=== PATIENT | female | born 1965 | race American Indian/Alaskan Native ===

== ENCOUNTER 2016-12-31 14:30 | Emergency (ER) | payer MEDICARE, MEDICAID ==
[2016-12-31 14:52] VITALS: BP 115/79
--- NOTE | 2016-12-31 15:22 | ED Physician Chart ---
Chief Complaint/HPI - Patient Information Date Seen:: 12/31/16 Time Seen:: 15:00 Chief Complaint:: COUGH History of Present Illness:: THIS IS A 51 YO FEMALE WITH TWO DAYS OF CHEST CONGESTION AND COUGH. THE COUGH IS PRODUCING GREEN SPUTUM WHICH INCREASES AT NIGHT. 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 SHE DENIES HAVING PNEUMONIA IN THE PAST. SHE IS NOT SURE WHETHER SHE HAS HAD FEVER OR NOT. SHE DENIES DIABETES AND HYPERTENSION. Allergies:: Allergies Allergy/AdvReac Type Severity Reaction Status Date / Time No Known Allergies Allergy Verified 12/31/16 14:43 Vitals:: Vital Signs - 8 hr 12/31/16 12/31/16 14:51 14:55 Temp 98.1 F HR 87 RR 14 BP 115/79 115/78 O2 Sat % 98 Historian:: Patient, Family Member (SISTER) Review:: Nurse's Note Reviewed Review of Systems - Review of Systems General/Constitutional: Fever, No chills, No weight loss, No weakness, No diaphoresis, No edema, No loss of appetite Skin: No skin lesions, No rash, No bruising Head: No headache, No light-headedness Eyes: No loss of vision, No pain, No diplopia ENT: No earache, No nasal drainage, No sore throat, No tinnitus Neck: No neck pain, No swelling, No thyromegaly, No stiffness, No mass noted Cardio Vascular: No chest pain, No palpitations, No PND, No orthopnea, No edema Pulmonary: SOB, No SOB, Cough, Sputum ( GREEN IN COLOR), No wheezing GI: No nausea, No vomiting, No diarrhea, No pain, No melena, No hematochezia, No constipation, No hematemesis G/U: No dysuria, No frequency, No hematuria Musculoskeletal: No bone or joint pain, No back pain, No muscle pain Endocrine: No polyuria, No polydipsia Psychiatric: No prior psych history, No depression, No anxiety, No suicidal ideation Hematopoietic: No bruising, No lymphadenopathy Allergic/Immuno: No urticaria, No angioedema Neurological: No syncope, No focal symptoms, No weakness, No paresthesia, No headache, No seizure, No dizziness, No confusion, No vertigo Past Medical History - Past Medical History Obtainable: Yes Past Medical History: Asthma/COPD Family History: None Social History: Non Smoker, No Alcohol, No Drug Use Surgical History: None Psychiatricy History: None Family Medical History - Family Member Sister History Unknown: Yes Hx Family Cancer: No Hx Family Hypertension: No Hx Family Stroke: No Hx Family Seizures: No Hx Family HIV: No Hx Family Hepatitis: No Physical Exam - Physical Examination General/Constitutional: Awake, Well-developed, well-nourished, Alert, No distress, GCS 15, Non-toxic appearing, Ambulatory Head: Atraumatic Eyes: Lids, conjuctiva normal, PERRL, EOMI Skin: Nl inspection, No rash, No skin lesions, No ecchymosis, Well hydrated, No lymphadenopathy ENMT: External ears, nose nl, Nasal exam nl, Lips, teeth, gums nl Neck: Nontender, Full ROM w/o pain, No JVD, No nuchal rigidity, No bruit, No mass, No stridor Respiratory: Nl effort/Exclusion, Clear to Auscultation Other Respiratory comments:: THERE ARE RHONCHI HEARD BILATERALLY Cardio Vascular: RRR, No murmur, gallop, rubs, NL S1 S2 GI: No tenderness/rebounding/guarding, No organomegaly, No hernia, Normal BS's, Nondistended, No mass/bruits, No McBurney tenderness : No CVA tenderness Extremities: No tenderness or effusion, Full ROM, normal strength in all extremities, No edema, Normal digits & nails Neuro/Psych: Alert/oriented, DTR's symmetric, Normal sensory exam, Normal motor strength, Judgement/insight normal, Mood normal, Normal gait, No focal deficits Misc: normal gait, Normal back, No paraspinal tenderness ED Septic Shock - . Is Septic Shock (SBP<90, OR Lactate>4 mmol\L) present?: No - <6hrs of presentation: Vital Signs: Vital Signs - 8 hr 12/31/16 12/31/16 14:51 14:55 Temp 98.1 F HR 87 RR 14 BP 115/79 115/78 O2 Sat % 98 Reassessment (Disposition) - Reassessment Reassessment Condition:: Unchanged - Diagnosis Diagnosis:: BRONCHITIS - Aftercare/Follow up Instructions Aftercare/Follow-Up Instructions:: Counseled pt regarding lab results/diagnosis & need follow up, Refer to Discharge Instructions, Counseled pt & family regarding lab results/diagnosis & need follow up - Patient Disposition Discharge/Transfer:: Home Condition at Disposition:: Unchanged ED Discharge Plan - Patient Disposition Admit/Discharge/Transfer: PT DISCHARGED HOME Condition at Disposition: Unchanged
--- NOTE | 2016-12-31 15:37 | ED Physician Chart ---
Chief Complaint/HPI - Patient Information Date Seen:: 12/31/16 Time Seen:: 15:00 Chief Complaint:: COUGH History of Present Illness:: THIS IS A 51 YEAR OLD FEMALE WITH TWO DAYS OF COUGHING AND FEVER WITH SPUTUM PRODUCTION WHICH WAS GREEN IN COLOR. SHE DENIES AN HISTORY OF PNEUMONIA AND T.B. THE PATIENT STATES THAT SHE COUGHS MORE AT NIGHT. 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 Allergies:: Allergies Allergy/AdvReac Type Severity Reaction Status Date / Time No Known Allergies Allergy Verified 12/31/16 14:43 Vitals:: Vital Signs - 8 hr 12/31/16 12/31/16 14:51 14:55 Temp 98.1 F HR 87 RR 14 BP 115/79 115/78 O2 Sat % 98 Review:: Nurse's Note Reviewed Review of Systems - Review of Systems General/Constitutional: Fever, No chills, No weight loss, No weakness, No diaphoresis, No edema, No loss of appetite Skin: No skin lesions, No rash, No bruising Head: No headache, No light-headedness Eyes: No loss of vision, No pain, No diplopia ENT: No earache, No nasal drainage, No sore throat, No tinnitus Neck: No neck pain, No swelling, No thyromegaly, No stiffness, No mass noted Cardio Vascular: No chest pain, No palpitations, No PND, No orthopnea, No edema Pulmonary: No SOB, Cough, Sputum, No wheezing GI: No nausea, No vomiting, No diarrhea, No pain, No melena, No hematochezia, No constipation, No hematemesis G/U: No dysuria, No frequency, No hematuria Musculoskeletal: No bone or joint pain, No back pain, No muscle pain Endocrine: No polyuria, No polydipsia Psychiatric: No prior psych history, No depression, No anxiety, No suicidal ideation Hematopoietic: No bruising, No lymphadenopathy Allergic/Immuno: No urticaria, No angioedema Neurological: No syncope, No focal symptoms, No weakness, No paresthesia, No headache, No seizure, No dizziness, No confusion, No vertigo Past Medical History - Past Medical History Obtainable: Yes Past Medical History: Asthma/COPD Family History: None Social History: Non Smoker, No Alcohol, No Drug Use Surgical History: None Psychiatricy History: Schizophrenia Family Medical History - Family Member Sister History Unknown: Yes Hx Family Cancer: No Hx Family Hypertension: No Hx Family Stroke: No Hx Family Seizures: No Hx Family HIV: No Hx Family Hepatitis: No Physical Exam - Physical Examination General/Constitutional: Awake, Well-developed, well-nourished, Alert, No distress, GCS 15, Non-toxic appearing, Ambulatory Head: Atraumatic Eyes: Lids, conjuctiva normal, PERRL, EOMI Skin: Nl inspection, No rash, No skin lesions, No ecchymosis, Well hydrated, No lymphadenopathy ENMT: External ears, nose nl, Nasal exam nl, Lips, teeth, gums nl Neck: Nontender, Full ROM w/o pain, No JVD, No nuchal rigidity, No bruit, No mass, No stridor Respiratory: Nl effort/Exclusion, Clear to Auscultation Other Respiratory comments:: BILATERAL RHONCHI HEARD. Cardio Vascular: RRR, No murmur, gallop, rubs, NL S1 S2 GI: No tenderness/rebounding/guarding, No organomegaly, No hernia, Normal BS's, Nondistended, No mass/bruits, No McBurney tenderness : No CVA tenderness Extremities: No tenderness or effusion, Full ROM, normal strength in all extremities, No edema, Normal digits & nails Neuro/Psych: Alert/oriented, DTR's symmetric, Normal sensory exam, Normal motor strength, Judgement/insight normal, Mood normal, Normal gait, No focal deficits Misc: normal gait, Normal back, No paraspinal tenderness ED Septic Shock - . Is Septic Shock (SBP<90, OR Lactate>4 mmol\L) present?: No - <6hrs of presentation: Vital Signs: Vital Signs - 8 hr 12/31/16 12/31/16 14:51 14:55 Temp 98.1 F HR 87 RR 14 BP 115/79 115/78 O2 Sat % 98 ED Discharge Plan - Patient Disposition Admit/Discharge/Transfer: PT DISCHARGED HOME Condition at Disposition: Unchanged Instructions: Bronchitis, [id number]
--- NOTE | 2016-12-31 15:44 | Diagnostic Imaging Report ---
CHEST X-RAY: AP view INDICATION: Cough COMPARISON: None FINDINGS: There is no focal consolidation or pleural effusions The heart is normal in size. The osseous structures demonstrate no acute abnormalities. Mild scoliosis is noted. There may have been old trauma to the left clavicle. IMPRESSION: No acute cardiopulmonary disease.
[2016-12-31 15:46] LABS: % BASOPHILS 0.1 % (0.0-2.0); % EOSINOPHILS 1.3 % (0.0-5.0); % LYMPHOCYTES 13.5 % (20.0-50.0); % MONOCYTES 8.8 % (2.0-10.0); % NEUTROPHILS 76.3 % (40.0-80.0); HEMATOCRIT 38.8 % (35.0-45.0); HEMOGLOBIN 13.2 gm/dL (11.7-15.5); MEAN CELL VOLUME 87.1 fl (81-100); MEAN CORPUSCULAR HEMOGLOBIN 29.6 pg (27.0-31.0); PLATELET COUNT 175 Th/cmm (150-400); RED BLOOD COUNT 4.46 Mil/cmm (3.80-5.10); RED CELL DISTRIBUTION WIDTH 12.9 % (11.5-20.0); WHITE BLOOD COUNT 11.8 Th/cmm (4.8-10.8)
[2016-12-31 15:52] LABS: CHOLESTEROL 139 mg/dL (<200); TRIGLYCERIDES 96 mg/dL (<150)
[2016-12-31 15:54] LABS: ALB/GLOB RATIO 1.3 (1.0-1.8); ALKALINE PHOSPHATASE 54 U/L (34-104); ANION GAP 5.4 (7.0-16.0); BILIRUBIN,TOTAL 0.6 mg/dL (0.3-1.0); BUN - UREA NITROGEN 11 mg/dL (7-25); BUN/CREATININE RATIO 15.7; CALCIUM SERUM 9.2 mg/dL (8.6-10.3); CARBON DIOXIDE 27.3 mEq/L (21.0-31.0); CHLORIDE 107 mEq/L (98-107); CREATININE - SERUM 0.7 mg/dL (0.6-1.2); GLUCOSE 91 mg/dL (70-105); POTASSIUM SERUM 4.7 mEq/L (3.5-5.1); SGOT 16 U/L (13-39); SGPT/ALT 13 U/L (7-52); SODIUM SERUM 135 mEq/L (136-145)
[2016-12-31 16:02] LABS: INR 0.95 (0.5-1.4); PROTHROMBIN TIME (TEST) 9.9 SECONDS (9.5-11.5)
== END 2016-12-31 16:30 | disposition home or self-care (01) ==
LOC: ER 14:30
DX: R05 Cough (principal); R50.9 Fever, unspecified; J45.909 Unspecified asthma, uncomplicated; J44.9 Chronic obstructive pulmonary disease, unspecified; F20.9 Schizophrenia, unspecified
CPT/HCPCS: 36415-UA; 71010-TC; 80053-TC; 80061-TC; 84443-TC; 84484-TC; 85025-TC; 85610-TC; 85730-TC; 86592-TC

== ENCOUNTER 2017-01-12 12:17 | Emergency (ER) | payer MEDICARE, MEDICAID ==
--- NOTE | 2017-01-12 13:24 | ED Physician Chart ---
Chief Complaint/HPI - Patient Information Date Seen:: 01/12/17 Time Seen:: 12:50 Chief Complaint:: Cough, sob. History of Present Illness:: Pt. has cough, sob 12 days. Was on unspecified antibiotic. No chest pain now, possible in last few days, prob. related to cough. Allergies:: Allergies Allergy/AdvReac Type Severity Reaction Status Date / Time No Known Allergies Allergy Verified 01/12/17 12:34 Vitals:: Vital Signs - 8 hr 01/12/17 12:30 Temp 97.7 F HR 75 RR 16 BP 116/72 O2 Sat % 98 Review of Systems - Review of Systems General/Constitutional: No fever, No chills, No weight loss Skin: No skin lesions Head: No headache Eyes: No loss of vision ENT: No earache, No sore throat Neck: No neck pain Cardio Vascular: Chest pain (probably pleuritic, mentioned only in ROS) Pulmonary: SOB, Cough GI: No nausea, No diarrhea G/U: No dysuria Musculoskeletal: No bone or joint pain Endocrine: No polyuria Psychiatric: Other (Psych hx, no acute sx's) Neurological: No syncope, No focal symptoms Past Medical History - Past Medical History Past Medical History: No significant medical hx Family History: Diabetes Melitus, Other (asthma,) Social History: Non Smoker, No Alcohol Psychiatricy History: Schizophrenia Family Medical History - Family Member Sister History Unknown: Yes Hx Family Cancer: No Hx Family Hypertension: No Hx Family Stroke: No Hx Family Seizures: No Hx Family HIV: No Hx Family Hepatitis: No Mother Hx Family Diabetes: Yes Physical Exam - Physical Examination General/Constitutional: Awake, Well-developed, well-nourished, Alert, No distress, GCS 15, Non-toxic appearing, Ambulatory Head: Atraumatic Eyes: Lids, conjuctiva normal Skin: Nl inspection ENMT: External ears, nose nl, TM canals nl, Oropharynx nl Neck: Nontender Respiratory: Nl effort/Exclusion, Clear to Auscultation, No Wheeze/Rhonchi/Rales Cardio Vascular: RRR, No murmur, gallop, rubs GI: No tenderness/rebounding/guarding : No CVA tenderness Extremities: No tenderness or effusion Neuro/Psych: Alert/oriented Labs/Radiology/EKG Results - Lab Results Results: EKG: NSR at 66 with nl. axis but delayed R wave progression. No acute ST changes. CXR: No obvious infiltrate. Trop nl at 0.01 CMP unremarkable. CPK nl. CBC unremarkable. Pt. states "Munira Carcamo" is unfamiliar. Called IT but prev. ER note does not show antibiotic. ED Septic Shock - . Is Septic Shock (SBP<90, OR Lactate>4 mmol\\L) present?: No - <6hrs of presentation: Vital Signs: Vital Signs - 8 hr 01/12/17 12:30 Temp 97.7 F HR 75 RR 16 BP 116/72 O2 Sat % 98 Reassessment (Disposition) - Diagnosis Diagnosis:: Dx: Acute Bronchitis - Aftercare/Follow up Instructions Aftercare/Follow-Up Instructions:: Counseled pt regarding lab results/diagnosis & need follow up Medication Prescribed:: Rx: Munira Carcamo: Take as directed. Disp. #1. No refill. - Patient Disposition Discharge/Transfer:: Home Condition at Disposition:: Stable
[2017-01-12 13:32] LABS: % BASOPHILS 0.9 % (0.0-2.0); % EOSINOPHILS 0.8 % (0.0-5.0); % LYMPHOCYTES 29.7 % (20.0-50.0); % MONOCYTES 9.4 % (2.0-10.0); % NEUTROPHILS 59.2 % (40.0-80.0); HEMATOCRIT 39.1 % (35.0-45.0); HEMOGLOBIN 13.3 gm/dL (11.7-15.5); MEAN CELL VOLUME 88.7 fl (81-100); MEAN CORPUSCULAR HEMOGLOBIN 30.1 pg (27.0-31.0); MEAN PLATELET VOLUME 7.6 fl; RED BLOOD COUNT 4.41 Mil/cmm (3.80-5.10)
[2017-01-12 13:34] LABS: PLATELET COUNT 231 Th/cmm (150-400); WHITE BLOOD COUNT 6.8 Th/cmm (4.8-10.8)
[2017-01-12 13:46] LABS: ALB/GLOB RATIO 1.4 (1.0-1.8); ALKALINE PHOSPHATASE 49 U/L (34-104); ANION GAP 3.1 (7.0-16.0); BILIRUBIN,TOTAL 0.3 mg/dL (0.3-1.0); BUN - UREA NITROGEN 12 mg/dL (7-25); BUN/CREATININE RATIO 17.1; CARBON DIOXIDE 29.2 mEq/L (21.0-31.0); CHLORIDE 107 mEq/L (98-107); CREATININE - SERUM 0.7 mg/dL (0.6-1.2); GLUCOSE 93 mg/dL (70-105); POTASSIUM SERUM 4.3 mEq/L (3.5-5.1); SGOT 16 U/L (13-39); SGPT/ALT 13 U/L (7-52); SODIUM SERUM 135 mEq/L (136-145)
[2017-01-12 14:00] LABS: CREATINE KINASE MB 0.7 ng/mL (0.6-6.3)
--- NOTE | 2017-01-12 14:19 | Diagnostic Imaging Report ---
Portable chest x-ray History: Cough Allowing for portable technique the heart size is normal. No focal pulmonary parenchymal processes. No hilar or mediastinal abnormalities. Impression: No acute abnormalities.
== END 2017-01-12 14:20 | disposition home or self-care (01) ==
LOC: ER 12:17
DX: J20.9 Acute bronchitis, unspecified (principal); F20.9 Schizophrenia, unspecified
CPT/HCPCS: 36415-UA; 71010-TC; 80053-TC; 82550-TC; 82553; 84484-TC; 85025-TC; 93005